=== PATIENT | male | born 1990 | race Caucasian/White ===

== ENCOUNTER 2016-12-01 18:30 | Emergency (ER) | payer SELFPAY ==
--- NOTE | ~2016-12-01 | CT2 ---
[facility] A Service of [facility] & [facility] RADIOLOGY TEXT RESULTS PATIENT: SONJA MALDONADO JR LOCATION: [facility] : [birth year] UNIT #: [id number] AGE: [address]: Delfino Burns MD SEX: M ORDER DR: [id number] [facility]. [place], [place] [address] [id number] MR#: [id number] [facility] #: [id number] NAME: SONJA MALDONADO JR : 1990 SEX: M STUDY DATE/TIME: 12/01/2016 22:08 UNIT: [facility] ROOM: STUDY DESCRIPTION: CT Abd and Pelv W Cont Attending Physician: Delfino Burns M.D. Ordering Physician: Delfino Burns M.D. Primary Care Physician: No Primary Care Physician MEDICAL IMAGING REPORT This report is preliminary unless electronic signature is present EXAM CT abdomen and pelvis. HISTORY Abdomen pain, nausea, left side front to back 2-3 days, back pain left side x5 months. Prior appendectomy. Hypertension. TECHNIQUE CT abdomen and pelvis performed with intravenous administration of 100 mL Isovue-370. Enteric contrast not administered. Study limited in the absence of enteric contrast. This CT exam was performed with one or more of the following radiation dose reduction techniques: automatic exposure control, adjustment of mA and/or kV according to patient size, and iterative reconstruction. COMPARISON 08/24/12. FINDINGS Liver, gallbladder, spleen, pancreas, adrenal glands unremarkable. Right renal cysts unchanged. Left renal cyst unchanged. No perinephric inflammatory change. No indication of hydronephrosis and no renal calculi are seen. No ureteral dilatation or secondary signs of recent stone passage. CT PELVIS: No inguinal adenopathy. Urinary bladder unremarkable. There is no free fluid in the pelvis. Prostate unremarkable. No pelvic or retroperitoneal adenopathy. Distal esophagus, stomach, small bowel unremarkable. Status post appendectomy. Colon shows mild uncomplicated sigmoid diverticulosis. Vascular structures normal in course and caliber. Bony structures show mild degenerative change in the thoracic spine. No acute-appearing bony abnormality. [facility] A Service of [facility] & [facility] RADIOLOGY TEXT RESULTS PATIENT: SONJA MALDONADO JR LOCATION: [facility] #: [id number] : [birth year] UNIT #: [id number] AGE: [address]: Delfino Burns MD SEX: M ORDER DR: IMPRESSION 1. No acute abnormality is seen in the abdomen or pelvis. 2. Bilateral renal cysts unchanged from 2013. 3. Status post appendectomy. 4. Mild uncomplicated sigmoid diverticulosis. 5. Heart [id number] limits of normal in size. Stable appearance. Dictated by... Matt Dillon M.D. THIS IS AN ELECTRONICALLY VERIFIED REPORT Matt Dillon M.D. at 12/02/2016 10:25 PM HARDY/lala TD: 12/02/2016 02:34 JOB #: [id number] MEDICAL IMAGING REPORT Page 1 of 1 COPY
[~2016-12-01 18:30] MED LIST: ALBUTEROL17 GM INH; AMOXICILLIN500 M1 PO; ANUSOL-HC CREAM30 G1 EXT; ATARAX PO; BACTRIM DS TABL1 TA1 PO; BACTRIM DS TABL1 TAB PO; IBUPROFEN800 MG PO; KEFLEX PO; KEFLEX500 MG PO; LOPRESSOR PO; LORTAB 7.51 TAB 7.5/ PO; PHENERGAN25 MG PO; PREDNISONE PO; PREDNISONE10 MG/DOSE PO; TRAMADOL HCL50 M1 PO; TUMS500 MG PO; ZANTAC PO; ZOVIRAX800 MG PO
[2016-12-01 19:56] LABS: BASOPHIL# 0.1 X10e3 (0-0.3); BASOPHIL% 1.2 % (0-2.5); EOSINOPHIL# 0.2 X10e3 (0-0.7); EOSINOPHIL% 2.1 % (0.0-7.0); HEMATOCRIT 42.7 % (38.0-50.0); HEMOGLOBIN 14.5 gm/dL (13.0-16.0); LYMPHOCYTE# 2.5 X10e3 (1.0-3.5); LYMPHOCYTE% 27.7 % (17.0-45.0); MEAN CELL VOLUME 88.7 FL (83-96); MEAN CORPUSCULAR HEMOGLOBIN 30.1 PG (28-34); MEAN CORPUSCULAR HGB CONC 33.9 g/dL (30-36); MEAN PLATELET VOLUME 7.9 FL (6.5-11.5); MONOCYTE# 0.9 X10e3 (0-1.0); MONOCYTE% 9.9 % (3.0-12.0); NEUTROPHIL# 5.3 X10e3 (1.5-7.1); NEUTROPHIL% 59.1 % (40-75); PLATELET COUNT 270 X10e3 (140-420); RED BLOOD COUNT 4.82 X10e (3.90-5.60); RED CELL DISTRIBUTION WIDTH 13.6 % (11.0-15.5)
[2016-12-01 19:57] LABS: DIFF IND NO
[2016-12-01 20:27] LABS: ALBUMIN SERUM 4.3 g/dL (3.5-5.0); BILIRUBIN, DIRECT 0.1 mg/dL (0.0-0.2); BILIRUBIN,INDIRECT 1.2 mg/dL (0.0-0.9); BILIRUBIN,TOTAL 1.3 mg/dL (0.2-2.0); CALCIUM SERUM 8.8 mg/dL (8.4-10.2); POTASSIUM 3.5 mmol/L (3.5-5.1); PROTEIN TOTAL SERUM 7.5 g/dL (6.0-8.3)
[2016-12-01 20:38] LABS: URINE SOURCE CLEAN CATCH
[2016-12-01 20:45] LABS: URINE APPEARANCE CLEAR; URINE BILIRUBIN NEG (NEG); URINE BLOOD NEG (NEG); URINE COLOR YELLOW; URINE GLUCOSE NEG (NEG); URINE KETONE NEG (NEG); URINE LEUKOCYTE ESTERASE TRACE (NEG); URINE NITRATE NEG (NEG); URINE PH 5.5 (5-8); URINE PROTEIN NEG (NEG); URINE SPECIFIC GRAVITY 1.028 (1.003-1.035)
[2016-12-01 20:49] LABS: CULTURE INDICATED? YES; URBCS1 AUWI 0-2 /[HPF] (0-2); URINE BACTERIA AUWI NEG (NEGATIVE); URINE SQUAMOUS EPITHELIAL CELL OCC /[HPF]
== END 2016-12-01 23:10 | disposition home or self-care (01) ==
LOC: CED 18:30
DX: R10.84 Generalized abdominal pain (principal); R11.2 Nausea with vomiting, unspecified; R19.7 Diarrhea, unspecified; I10 Essential (primary) hypertension; F17.200 Nicotine dependence, unspecified, uncomplicated; Z90.89 Acquired absence of other organs
CPT/HCPCS: 36415; 74177; 80048; 80076; 81003; 83690; 85025; 87086; 96361; 96374; 96375; 99284; J1885; J2405; Q9967